=== PATIENT | male | born 1990 | race Caucasian/White ===

== ENCOUNTER 2019-08-23 17:58 | Emergency (ER) | payer MEDICAID ==
[~2019-08-23] VITALS: Ht 182.9 cm; Wt 104.5 kg
[2019-08-23 18:22] VITALS: Ht 182.9 cm; Wt 104.5 kg
[2019-08-23] MEDS ORDERED: HYDROCODONE-A1 UDTA2 PO (20:05)
[2019-08-23] MEDS ORDERED: PENICILLIN V P500 MG PO (20:05)
[2019-08-23 20:14] VITALS: BP 109/73
== END 2019-08-23 20:10 | disposition home or self-care (01) ==
LOC: D.ER 17:58
DX: K08.89 Other specified disorders of teeth and supporting structures (principal)